=== PATIENT | female | born 1985 | race Caucasian/White ===

== ENCOUNTER → 2016-07-03 | Outpatient (REF) | payer BC | LOC: M LABDRAW1 12:02 | PROVIDERS: ATTEND Emergency Medicine | DX: O03.80 Unspecified complication following complete or unspecified spontaneous abortion (principal) ==

== ENCOUNTER → 2016-07-16 | Outpatient (REF) | payer BC | LOC: M LABDRAW1 12:32 | PROVIDERS: ATTEND Emergency Medicine | DX: O03.80 Unspecified complication following complete or unspecified spontaneous abortion (principal) ==

== ENCOUNTER → 2016-08-05 | Outpatient (REF) | payer SELFPAY | LOC: M LABDRAW1 15:48 | PROVIDERS: ATTEND Emergency Medicine | DX: O03.80 Unspecified complication following complete or unspecified spontaneous abortion (principal) ==

== ENCOUNTER → 2020-10-24 | Outpatient (REF) | payer SELFPAY | LOC: M WUC 19:40 | PROVIDERS: ATTEND Physician Assistant | DX: B37.3 Candidiasis of vulva and vagina (principal) ==

== ENCOUNTER → 2020-11-07 | Outpatient (REF) | payer BC ==
[2020-11-07 20:41] LABS: GC DNA AMPLIFICATION NEGATIVE (NEGATIVE)
== END ==
LOC: M LAB REF 14:54
PROVIDERS: ATTEND Family Medicine
DX: N76.0 Acute vaginitis (principal)

== ENCOUNTER → 2020-12-30 | Outpatient (REF) | payer BC | LOC: M LAB REF 16:57 | PROVIDERS: ATTEND Family Medicine | DX: N76.0 Acute vaginitis (principal) ==

== ENCOUNTER → 2021-01-30 | Outpatient (REF) | payer BC ==
[2021-01-30 17:05] LABS: GC DNA AMPLIFICATION NEGATIVE (NEGATIVE)
== END ==
LOC: M LAB REF 15:12
PROVIDERS: ATTEND Family Medicine
DX: Z01.419 Encounter for gynecological examination (general) (routine) without abnormal findings (principal)

== ENCOUNTER → 2023-10-05 | Outpatient (REF) | payer BC | LOC: M LAB REF 17:36 | PROVIDERS: ATTEND Nurse Practitioner Family | DX: N39.0 Urinary tract infection, site not specified (principal) ==